=== PATIENT | female | born 1965 | race Caucasian/White ===

== ENCOUNTER 2017-03-15 19:25 | Emergency (ER) | payer OTHER ==
[~2017-03-15] VITALS: Ht 154.9 cm; Wt 55.4 kg
[2017-03-15 19:33] VITALS: Ht 154.9 cm; Wt 55.4 kg
[2017-03-16] MEDS ORDERED: ONDANSETRON 4 MG INJ IV STA (00:07)
[2017-03-16 00:51] LABS: ADD SCAN DIFF NO
[2017-03-16 00:53] LABS: BASOPHIL # 0.1 10^3/ul (0.0-0.1); BASOPHILS % 0.5 % (0.0-2.0); EOSINOPHILS % 0.2 % (0.0-7.0); HEMATOCRIT 40.6 % (37.0-47.0); HEMOGLOBIN 13.6 g/dl (12.0-16.0); LYMPHOCYTES # 1.6 10^3/ul (0.8-2.9); LYMPHOCYTES % 16.8 % (15.0-51.0); MEAN CORPUSCULAR HEMOGLOBIN 29.2 pg (29.0-33.0); MEAN CORPUSCULAR HGB CONC 33.5 g/dl (32.0-37.0); MEAN CORPUSCULAR VOLUME 87.1 fl (82.0-101.0); MEAN PLATELET VOLUME 9.9 fl (7.4-10.4); MONOCYTE # 0.4 10^3/ul (0.3-0.9); MONOCYTES % 4.4 % (0.0-11.0); NEUTROPHIL # 7.6 10^3/ul (1.6-7.5); NEUTROPHILS % 77.9 % (39.0-77.0); PLATELET COUNT 358 10^3/UL (140-415); RED BLOOD COUNT 4.66 10^6/ul (4.20-5.40); RED CELL DISTRIBUTION WIDTH 12.9 % (11.5-14.5); WHITE BLOOD COUNT 9.7 10^3/ul (4.8-10.8)
[2017-03-16 01:11] LABS: INR 0.91; PARTIAL THROMBOPLASTIN TIME 25.8 Sec (25.0-35.0); PROTIME 12.3 Sec (12.2-14.2)
--- NOTE | 2017-03-16 01:20 | RADRPT ---
PROCEDURE: CT Head without. CLINICAL INDICATION: Headache. TECHNIQUE: The study was performed utilizing a multi-slice, multidetector CT scanner. Direct spira l 1 mm axial sections were obtained through the head without the use of intravenous contrast materia l. 1 or more of the following dose reduction techniques were utilized: Automated exposure control, adjustment of the mA and/or kV according to patient's size, iterative reconstruction technique. Co anthony and sagittal reformations were obtained. The images were reviewed on a PACS workstation. RADIATION DOSE: CTDIvol: 45.0 mGyDLP: 720.2 mGy-cm COMPARISON: No prior studies are available for comparison. FINDINGS: There is no intracranial hemorrhage, extra-axial fluid collection, mass lesion, midline shift or hyd rocephalus. The ventricles, sulci and cisterns are within normal limits. The white matter is unrem arkable. The dey-white matter differentiation is preserved. There is a small benign appearing jeanne cification deep in the left parietal sulcus (axial series image 22) suggestive of remote prior neuro cysticercosis. There is no edema in the underlying white matter. The basal cisterns are patent. T he midline structures are intact. The orbits, calvarium and extracranial soft tissues are normal in appearance. The visualized paranasal sinuses, mastoid air cells and middle ear cavities are normall y aerated. IMPRESSION: 1. No acute intracranial abnormality. No intracranial hemorrhage, extra-axial fluid collection, ma ss lesion or hydrocephalous. 2. 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 RPTAT: HGAS .Marcos Ortiz MD, Date Time Electronically viewed and signed by .Marcos Ortiz MD, on 03/16/2017 01:19 .S/
[2017-03-16 01:30] VITALS: TEMP 97.8
[2017-03-16 01:33] LABS: ANION GAP 14 (8-16); BLOOD UREA NITROGEN 11 mg/dl (7-20); CALCIUM 9.1 mg/dl (8.4-10.2); CARBON DIOXIDE 25 mmol/L (21-31); CHLORIDE 106 mmol/L (97-110); CREATININE 0.57 mg/dl (0.44-1.00); GLUCOSE 96 mg/dl (70-220); POTASSIUM 4.2 mmol/L (3.5-5.1); SODIUM 141 mmol/L (135-144)
[2017-03-16 01:48] LABS: TROPONIN-I < 0.012 ng/ml (0.00-0.12)
[2017-03-16] MEDS ORDERED: MECLIZINE 12.5 MG TAB PO ONE (02:00)
--- NOTE | 2017-03-16 02:10 | RADRPT ---
PROCEDURE: XR Chest. CLINICAL INDICATION: Pain. TECHNIQUE: Single frontal chest x-ray. COMPARISON: None. FINDINGS: The cardiomediastinal silhouette is unremarkable. There is no congestive heart failure.. No focal i nfiltrate is seen. There is no pleural effusion. There is no pneumothorax. The osseous structures are unremarkable. IMPRESSION: 1. No active disease. RPTAT: HMVK .Jimbo Williamson MD, MD Date Time Electronically viewed and signed by .Jimbo Williamson MD, MD on 03/16/2017 02:10 .K/
[2017-03-16] MEDS ORDERED: ASPI-664 PO (02:18)
[2017-03-16] MEDS ORDERED: MULTI PO (02:21)
[2017-03-16] MEDS ORDERED: CHOL400T10 PO (02:21)
[2017-03-16] MEDS ORDERED: ACET-141 PO (02:21)
[2017-03-16] MEDS ORDERED: CLC1500T PO (02:21)
--- NOTE | 2017-03-16 05:08 | ERD ---
ER Documentation Chief Complaint Date/Time DATE: 03/16/17 TIME: 05:07 Chief Complaint bib ra 909 sudden dizziness, n/v. states "heart is fast" HPI This is a 51-year-old female who said she feels dizziness nausea vomiting palpitations over the past day. She said she suddenly became more dizzy and hour prior to arrival. Denies any focal neurological complaints. Denies any fevers or chills. Denies any other current issues. ROS All systems reviewed and are negative except as per history of present illness. Medications Home Meds Reported Medications Multivitamins* (Theragran*) 1 Tab Tab, 1 TAB PO DAILY, TAB 03/16/17 Calcium Carbonate* (Caltrate-600*) 600 MG Calcium Tab, 600 MG PO BID, TAB (1500 mg Calcium Carbonate) 03/16/17 Cholecalciferol* (Vitamin D*) 400 Unit Tablet, 400 UNIT PO DAILY, TAB 03/16/17 Acetaminophen* (Acetaminophen*) 500 MG Extra Strength Tablet, 500 MG PO Q4H Y for PAIN AND OR ELEVATED TEMP, TAB 03/16/17 Aspirin* (Aspirin* EC) 81 Mg Tablet.dr, 81 MG PO DAILY, TAB 03/16/17 Allergies Allergies: Coded Allergies: No Known Allergy (Unverified , 03/16/17) PMhx/Soc Medical and Surgical Hx: pt denies Medical Hx History of Surgery: Yes (C SECTION) Hx Alcohol Use: No Hx Substance Use: No Hx Tobacco Use: No Smoking Status: Never smoker Physical Exam Vitals Vital Signs Date Time Temp Pulse Resp B/P Pulse Ox O2 Delivery O2 Flow Rate FiO2 03/16/17 04:11 63 18 113/77 99 Room Air 03/16/17 02:00 61 14 98/72 98 Room Air 03/16/17 01:30 97.8 58 20 112/76 100 Room Air 03/15/17 19:33 97.8 83 24 128/87 99 Physical Exam Const: [] Head: Atraumatic Eyes: Normal Conjunctiva ENT: Normal External Ears, Nose and Mouth. Neck: Full range of motion..~ No meningismus. Resp: Clear to auscultation bilaterally Cardio: Regular rate and rhythm, no murmurs Abd: Soft, non tender, non distended. Normal bowel sounds Skin: No petechiae or rashes Back: No midline or flank tenderness Ext: No cyanosis, or edema Neur: Awake and alert Psych: Normal Mood and Affect Result Diagram: 03/16/172 03/16/17 0032 Results 24 hrs Laboratory Tests Test 03/16/17 00:32 White Blood Count 9.710^3/ul Red Blood Count 4.6610^6/ul Hemoglobin 13.6g/dl Hematocrit 40.6% Mean Corpuscular Volume 87.1fl Mean Corpuscular Hemoglobin 29.2pg Mean Corpuscular Hemoglobin Concent 33.5g/dl Red Cell Distribution Width 12.9% Platelet Count 43598^3/UL Mean Platelet Volume 9.9fl Neutrophils % 77.9% Lymphocytes % 16.8% Monocytes % 4.4% Eosinophils % 0.2% Basophils % 0.5% Nucleated Red Blood Cells % 0.0/100WBC Neutrophils # 7.610^3/ul Lymphocytes # 1.610^3/ul Monocytes # 0.410^3/ul Eosinophils # 0.010^3/ul Basophils # 0.110^3/ul Nucleated Red Blood Cells # 0.010^3/ul Prothrombin Time 12.3Sec Prothrombin Time Ratio 1.0 INR International Normalized Ratio 0.91 Activated Partial Thromboplast Time 25.8Sec Sodium Level 141mmol/L Potassium Level 4.2mmol/L Chloride Level 106mmol/L Carbon Dioxide Level 25mmol/L Anion Gap 14 Blood Urea Nitrogen 11mg/dl Creatinine 0.57mg/dl Glucose Level 96mg/dl Calcium Level 9.1mg/dl Troponin I < 0.012ng/ml Current Medications Medications (Trade) Dose Ordered Sig/La Route PRN Reason Start Time Stop Time Status Last Admin Dose Admin Ondansetron HCl (Zofran Inj) 4 mg ONCE STAT IV 03/16/17 00:07 03/16/17 01:08 DC 03/16/17 01:15 Meclizine HCl (Antivert) 50 mg ONCE ONCE PO 03/16/17 02:00 03/16/17 02:01 DC 03/16/17 02:28 Procedures/MDM EKG: Rate/Rhythm: [Normal Sinus Rhythm] QRS, ST, T-waves: [No changes consistent w/ acute ischemia] Impression: [No evidence of ischemia or arrhythmia] Chest X-ray 1V Interpreted by me: Soft Tissue: No acute abnormalities Bones: No acute abnormalities Mediastinum/Cardiac Silhouette/Lungs: [No acute abnormalities] Patient's neurologic symptoms have stabilized while they have been evaluated in the department and are appropriate for outpatient work up. No e/o meningitis, intracranial bleed, seizure, stroke. Patient's symptoms resolved with meclizine and Zofran. Patient likely has some mild benign positional vertigo. No evidence of focal neurological issue. Patient will be discharged home. Return for any return of symptoms. Patient currently symptom- free. Departure Diagnosis: Primary Impression: Dizziness Condition: Stable ALEC REAVES Mar 16, 2017 05:08
[2017-03-16] MEDS ORDERED: MECL-77 PO (05:10)
[2017-03-16] MEDS ORDERED: ONDA4TAB14 PO (05:10)
[2017-03-16 05:48] VITALS: BP 101/66; PULSE 84; RESP 16
== END 2017-03-16 05:49 | disposition home or self-care (01) ==
LOC: E/R 19:25
DX: R42 Dizziness and giddiness (principal); R11.2 Nausea with vomiting, unspecified; R07.9 Chest pain, unspecified; Z79.82 Long term (current) use of aspirin
CPT/HCPCS: 36415; 70450; 71010; 80048; 84484; 85025; 85610; 85730; 93005; 96374; 99285; J2405